=== PATIENT | female | born 1965 | race Caucasian/White ===

== ENCOUNTER 2021-04-23 00:04 | Emergency (ER) | payer SELFPAY ==
[2021-04-23] MEDS ORDERED: Sodium Chloride 0.9% 10 ML Syringe FLUSH PRN (00:05)
--- NOTE | 2021-04-23 00:08 | EDM.PDOC ---
ED [facility] GENERAL MEDICAL PROBLEM - General Chief Complaint: Abdominal Pain Stated Complaint: umbilical pain Time Seen by Provider: 04/23/21 00:04 Source of Information: Reports: Patient History Limitations: Reports: No Limitations - History of Present Illness INITIAL COMMENTS - FREE TEXT/NARRATIVE: Patient comes into the emergency department with complaints of umbilical discomfort. Patient states that the pain and discomfort is been going on now constantly for the last 4 days. Patient is not able to describe the sensation other than an aching sensation. Patient denies any nausea, vomiting, chest pain, shortness of breath, lightheadedness, radiation, genitourinary concerns, or peripheral edema. Patient states that she has next separately high pain tolerance and she want to have this discomfort checked out tonight. She denies the pain or the symptoms getting any worse over the course the last 4 days. Onset: Gradual Duration: Constant Location: Reports: Abdomen. Denies: Radiates to Quality: Reports: Ache, Throbbing Severity: Moderate Improves with: Reports: None Worsens with: Reports: None Associated Symptoms: Reports: No Other Symptoms - Related Data Allergies Allergy/AdvReac Type Severity Reaction Status Date / Time Sulfa (Sulfonamide Allergy Other Verified 04/23/21 00:25 Antibiotics) ED ROS GENERAL - Review of Systems Review Of Systems: Comprehensive ROS is negative, except as noted in HPI. Constitutional: Reports: No Symptoms HEENT: Reports: No Symptoms Respiratory: Reports: No Symptoms Cardiovascular: Reports: No Symptoms Endocrine: Reports: No Symptoms GI/Abdominal: Reports: Abdominal Pain : Reports: No Symptoms Musculoskeletal: Reports: No Symptoms Skin: Reports: No Symptoms Neurological: Reports: No Symptoms Psychiatric: Reports: No Symptoms Hematologic/Lymphatic: Reports: No Symptoms Immunologic: Reports: No Symptoms ED EXAM, GENERAL - Physical Exam Exam: See Below Exam Limited By: No Limitations General Appearance: Alert, WD/WN, No Apparent Distress Throat/Mouth: Normal Inspection, Normal Lips, Normal Teeth, Normal Voice, No Airway Compromise Head: Atraumatic, Normocephalic Neck: Normal Inspection, Supple, Non-Tender, Full Range of Motion Respiratory/Chest: No Respiratory Distress, Lungs Clear, Normal Breath Sounds, No Accessory Muscle Use, Chest Non-Tender Cardiovascular: Normal Peripheral Pulses, Regular Rate, Rhythm, No Edema, No JVD, No Murmur, No Rub GI/Abdominal: Normal Bowel Sounds, Soft, No Organomegaly, No Distention, No Abnormal Bruit, No Mass, Pelvis Stable, Tender (umbilicus region) Back Exam: Normal Inspection, Full Range of Motion Extremities: Normal Inspection, Normal Range of Motion, Non-Tender, No Pedal Edema, Normal Capillary Refill Neurological: Alert, Oriented, CN II-XII Intact, Normal Gait Psychiatric: Normal Affect, Normal Mood Skin Exam: Warm, Dry, Intact, Normal Color #1 Interpretation EKG Date: 04/23/21 Rhythm: NSR [place]: Normal P-Wave: Present QRS: Normal ST-T: Normal Comparison: NA - No Prior EKG Course - Vital Signs Last Recorded V/S: Last Vital Signs Temp 36.6 C 04/23/21 01:03 Pulse 126 H 04/23/21 01:03 Resp 18 04/23/21 01:03 BP 175/101 H 04/23/21 01:03 Pulse Ox 97 04/23/21 01:03 - Orders/Labs/Meds Orders: Active Orders 24 hr Category Date Time Status EKG Documentation Completion [RC] STAT Care 04/23/21 00:08 Ordered Abdomen Pelvis w Cont [CT] Stat Exams 04/23/21 00:05 Ordered COMPREHENSIVE METABOLIC PN,CMP [CHEM] Stat Lab 04/23/21 00:05 Ordered PRO B-TYPE NATRIUR PEPT,BNPPRO [CHEM] Stat Lab 04/23/21 00:05 Ordered TROPONIN I HIGH SENSITIVITY [CHEM] Stat Lab 04/23/21 00:05 Ordered Sodium Chloride 0.9% [Saline Flush] Med 04/23/21 00:05 Ordered 10 ml FLUSH ASDIRECTED PRN Peripheral IV Insertion Adult [OM.PC] Stat Oth 04/23/21 00:05 Ordered Medication Orders Sodium Chloride (Sodium Chloride 0.9% 10 Ml Syringe) 10 ml FLUSH ASDIRECTED PRN PRN Reason: Keep Vein Open Labs: Laboratory Tests 04/23/21 04/23/21 04/23/21 Range/Units 00: 00:21 00:45 WBC 5.7 (4.0-10.0) x10^3/uL RBC 4.76 (4.00-5.50) x10^6/uL Hgb 13.3 (12.0-16.0) g/dL Hct 39.3 (33.0-47.0) % MCV 82.6 (78.0-93.0) fL MCH 27.9 (26.0-32.0) pg MCHC 33.8 (32.0-36.0) g/dL RDW Coeff of Bob 13.7 (10.0-15.0) % Plt Count 246 (130-400) x10^3/uL Immature Gran % (Auto) 0.00 (0.00-0.43) % Neut % (Auto) 58.0 (50.0-80.0) % Lymph % (Auto) 31.4 (25.0-50.0) % [place] % (Auto) 8.5 (2.0-11.0) % Eos % (Auto) 1.9 (0.0-4.0) % Baso % (Auto) 0.2 (0.2-1.2) % Neut # (Auto) 3.3 (1.8-7.7) x10^3/uL Lymph # (Auto) 1.8 (1.0-4.8) x10^3/uL [place]yman # (Auto) 0.5 (0.0-0.8) x10^3/uL Eos # (Auto) 0.1 (0.0-0.5) x10^3/uL Baso # (Auto) 0.0 (0.0-0.2) x10^3/uL Immature Gran # (Auto) 0.00 (0.00-0.07) x10^3/uL Sodium 142 (136-145) mmol/L Potassium 3.5 (3.5-5.1) mmol/L Chloride 109 H (98-107) mmol/L Carbon Dioxide 23 (21-32) mmol/L Anion Gap 13.5 (5-15) mmol/L BUN 15 (7-18) mg/dL Creatinine 0.9 (0.55-1.02) mg/dL Est Cr Clr Drug Dosing TNP Estimated GFR (MDRD) > 60 Glucose 127 H (70-99) mg/dL Calcium 7.7 L (8.5-10.1) mg/dL Corrected Calcium 8.3 L (8.5-10.1) mg/dL Total Bilirubin 0.3 (0.2-1.0) mg/dL AST 14 L (15-37) U/L ALT 26 (14-59) U/L Alkaline Phosphatase 79 (46-116) U/L Troponin I High Sens 7 (<=51) ng/L Total Protein 6.3 L (6.4-8.2) g/dL Albumin 3.2 L (3.4-5.0) g/dL Globulin 3.1 Albumin/Globulin Ratio 1.03 Urine Color Yellow (YELLOW) Urine Appearance Clear (CLEAR) Urine pH 6.0 (5.0-8.0) Ur Specific [place] 1.010 Urine Protein Negative (NEGATIVE) mg/dL Urine Glucose (UA) Negative (NEGATIVE) mg/dL Urine Ketones Negative (NEGATIVE) mg/dL Urine Occult Blood Negative (NEGATIVE) Urine Nitrite Negative (NEGATIVE) Urine Bilirubin Negative (NEGATIVE) Urine Urobilinogen 0.2 (0.2) EU/dL Ur Leukocyte Esterase Negative (NEGATIVE) Meds: Medications Generic Name Dose Route Start Last Admin Trade Name Freq PRN Reason Stop Dose Admin Sodium Chloride 10 ml 04/23/21 00:05 Sodium Chloride 0.9% 10 Ml Syringe FLUSH ASDIRECTED PRN Keep Vein Open Discontinued Medications Generic Name Dose Route Start Last Admin Trade Name Freq PRN Reason Stop Dose Admin Iopamidol 100 ml 04/23/21 00:47 04/23/21 00:47 Iopamidol 612 Mg/Ml 100 Ml Bottle IVPUSH 04/23/21 00:48 100 ml ONETIME ONE Administration Ketorolac Tromethamine 30 mg 04/23/21 00:09 04/23/21 00:15 Ketorolac 30 Mg/Ml Sdv IVPUSH 04/23/21 00:10 30 mg ONETIME ONE Administration Departure - Departure Time of Disposition: 01:35 Disposition: Home, Self-Care 01 Condition: Good Clinical Impression: Gastroenteritis - Discharge Information *PRESCRIPTION DRUG MONITORING PROGRAM REVIEWED*: Not Applicable *COPY OF PRESCRIPTION DRUG MONITORING REPORT IN PATIENT RAVI: Not Applicable Instructions: Viral Gastroenteritis, Adult, [id number] Forms: ED Department Discharge Additional Instructions: 1. rest 2. increase your water intake 3. Continue all at home medications 4. Activity and diet as tolerated 5. Can take over the counter Tylenol for any pain or discomfort 6. Follow up with PCP if symptoms continue, return, or progress 7. Call with any questions or concerns Sepsis Event Note (ED) - Focused Exam Vital Signs: Vital Signs Temp Pulse Resp BP Pulse Ox 04/23/21 01:03 36.6 C 126 H 18 175/101 H 97 - My Orders Last 24 Hours: My Active Orders 04/23/21 00:05 Abdomen Pelvis w Cont [CT] Stat COMPREHENSIVE METABOLIC PN,CMP [CHEM] Stat PRO B-TYPE NATRIUR PEPT,BNPPRO [CHEM] Stat TROPONIN I HIGH SENSITIVITY [CHEM] Stat Sodium Chloride 0.9% [Saline Flush] 10 ml FLUSH ASDIRECTED PRN Peripheral IV Insertion Adult [OM.PC] Stat 04/23/21 00:08 EKG Documentation Completion [RC] STAT - Assessment/Plan Last 24 Hours: My Active Orders 04/23/21 00:05 Abdomen Pelvis w Cont [CT] Stat COMPREHENSIVE METABOLIC PN,CMP [CHEM] Stat PRO B-TYPE NATRIUR PEPT,BNPPRO [CHEM] Stat TROPONIN I HIGH SENSITIVITY [CHEM] Stat Sodium Chloride 0.9% [Saline Flush] 10 ml FLUSH ASDIRECTED PRN Peripheral IV Insertion Adult [OM.PC] Stat 04/23/21 00:08 EKG Documentation Completion [RC] STAT Assessment:: 1. abdominal pain 2. Enteritis Plan: 1. Labs completed in the ER. Results reviewed with the patient 2. CT scan completed in the ER. Results reviewed with the patient 3. IV initiated in the emergency department 4. IV fluids provided 5. Pain medication given for severe pain and discomfort-Toradol 6. UA completed and results reviewed 7. EKG completed. results reviewed with the patient 8. Patient and nursing staff was updated regarding the plan of care 9. Patient and family are agreeable to the above plan of care 10. All questions and concerns were addressed with the patient and family prior to discharge
[2021-04-23] MEDS ORDERED: Ketorolac 30 MG/ML SDV IVPUSH ONE (00:09)
[2021-04-23] MEDS ORDERED: Iopamidol 612 MG/ML 100 ML Bottle IVPUSH ONE (00:47)
[2021-04-23 01:08] LABS: CHLORIDE,CL 109 mmol/L (98-107); SODIUM,NA 142 mmol/L (136-145)
[2021-04-23 01:12] LABS: ANION GAP 13.5 mmol/L (5-15)
--- NOTE | 2021-04-23 08:34 | CT ---
[id number] CT/CT Abdomen Pelvis W IV EXAM: ABDOMEN AND PELVIS CT WITH CONTRAST INDICATION: ABD PAIN. COMPARISON: None. DISCUSSION: A mild thick-walled appearance of scattered small bowel loops could relate to incomplete distention or mild enteritis. No bowel dilation, pneumatosis, free air free fluid. The liver is at upper limits of normal for size and demonstrates at least mild steatosis. Mild bladder distention with ectasia of both urinary collecting systems. Small parapelvic left renal cysts. Mild atrophy or scarring upper pole right kidney. The gallbladder, pancreas, spleen, adrenal glands, appendix, and small bowel are normal in appearance. The uterus and ovaries are unremarkable. The osseous structures are unremarkable. IMPRESSION: 1. Mild apparent small bowel wall thickening, incomplete distention versus minor enteritis. Guy Cosby MD 04/23/21 0833 Thank you for allowing us to participate in the care of your patient.
== END 2021-04-23 01:43 | disposition home or self-care (01) ==
LOC: VM.ED 00:04
DX: K52.9 Noninfective gastroenteritis and colitis, unspecified (principal); Z88.2 Allergy status to sulfonamides
CPT/HCPCS: 74177; 80053; 81003; 83880; 84484; 85025; 93005; 93010; 96374; 99284; 99284-25; J1885; Q9967

== ENCOUNTER 2021-11-25 08:48 | Emergency (ER) | payer SELFPAY ==
[2021-11-25] MEDS ORDERED: Ketorolac 30 MG/ML SDV IM ONE (09:09)
== END 2021-11-25 10:22 | disposition other institution (70) ==
LOC: VM.ED 08:48
DX: M79.671 Pain in right foot (principal); Z88.2 Allergy status to sulfonamides
CPT/HCPCS: 73630-RT; 96372; 99283; 99283-25; J1885

== ENCOUNTER 2022-09-28 04:05 | Emergency (ER) | payer OTHER | END 2022-09-28 05:05 | disposition home or self-care (01) | LOC: VM.ED 04:05 | DX: M53.3 Sacrococcygeal disorders, not elsewhere classified (principal); R29.3 Abnormal posture; Z88.2 Allergy status to sulfonamides; Z72.0 Tobacco use | CPT/HCPCS: 99283; 99284 ==

== ENCOUNTER 2023-01-14 04:07 | Emergency (ER) | payer OTHER | END 2023-01-14 04:30 | disposition home or self-care (01) | LOC: VM.ED 04:07 | DX: S10.96XA Insect bite of unspecified part of neck, initial encounter (principal); Z72.0 Tobacco use; Z88.2 Allergy status to sulfonamides; W57.XXXA Bitten or stung by nonvenomous insect and other nonvenomous arthropods, initial encounter | CPT/HCPCS: 99281; 99283 ==

== ENCOUNTER 2024-08-12 23:23 | Emergency (ER) | payer OTHER ==
[2024-08-12] MEDS: predniSONE 20 MG Tab PO ONE (23:47)
[2024-08-12] MEDS: diphenhydrAMINE 25 MG Cap PO ONE (23:47)
== END 2024-08-13 00:03 | disposition home or self-care (01) ==
LOC: VM.ED 23:23
DX: S50.861A Insect bite (nonvenomous) of right forearm, initial encounter (principal); S50.862A Insect bite (nonvenomous) of left forearm, initial encounter; Z88.2 Allergy status to sulfonamides; F17.210 Nicotine dependence, cigarettes, uncomplicated; W57.XXXA Bitten or stung by nonvenomous insect and other nonvenomous arthropods, initial encounter
CPT/HCPCS: 99282; A9270-GY; J7512

== ENCOUNTER 2024-08-17 00:15 | Observation (INO) | payer OTHER ==
[2024-08-17] MEDS ORDERED: Sodium Chloride 0.9% 10 ML Syringe FLUSH PRN (00:42)
[2024-08-17 01:00] LABS: BASOPHILS PERCENT AUTO 0.1 % (0.2-1.2); EOSINOPHILS ABSOLUTE AUTO 0.2 x10^3/uL (0.0-0.5); EOSINOPHILS PERCENT AUTO 1.3 % (0.0-4.0); HEMATOCRIT 41.7 % (33.0-47.0); HEMOGLOBIN 14.2 g/dL (12.0-16.0); IMMATURE GRAN ABSOLUTE AUTO 0.04 x10^3/uL (0.00-0.07); LYMPHOCYTES ABSOLUTE AUTO 2.1 x10^3/uL (1.0-4.8); LYMPHOCYTES PERCENT AUTO 14.9 % (25.0-50.0); MEAN CORPUSCULAR HEMOGLOBIN 28.1 pg (26.0-32.0); MEAN CORPUSCULAR HGB CONC 34.1 g/dL (32.0-36.0); MEAN CORPUSCULAR VOLUME 82.4 fL (78.0-93.0); MONOCYTES ABSOLUTE AUTO 0.8 x10^3/uL (0.0-0.8); MONOCYTES PERCENT AUTO 5.7 % (2.0-11.0); NEUTROPHILS PERCENT AUTO 77.7 % (50.0-80.0); PLATELET COUNT,PLT 298 x10^3/uL (130-400); RED BLOOD CELL COUNT 5.06 x10^6/uL (4.00-5.50); WHITE BLOOD CELL COUNT,WBC 14.2 x10^3/uL (4.0-10.0)
[2024-08-17] MEDS: Ketorolac 30 MG/ML SDV IVPUSH ONE (01:04)
[2024-08-17 01:10] LABS: APPEARANCE,URINE CLEAR (CLEAR); BILIRUBIN,URINE NEGATIVE (NEGATIVE); COLOR,URINE YELLOW (YELLOW); GLUCOSE,URINE NEGATIVE (NEGATIVE); KETONES,URINE NEGATIVE (NEGATIVE); LEUKOCYTE ESTERASE,URINE NEGATIVE (NEGATIVE); NITRITE,URINE NEGATIVE (NEGATIVE); OCCULT BLOOD,URINE TRACE-INTACT (NEGATIVE); PROTEIN,URINE NEGATIVE (NEGATIVE); UROBILINOGEN,URINE 0.2 EU/dL (0.2)
[2024-08-17 01:17] LABS: BACTERIA,URINE RARE /HPF (NOT SEEN); RBC,URINE 0-5 /HPF (NOT SEEN); SQUAMOUS EPITHELIAL CELLS,UR FEW /HPF (NOT SEEN); WBC,URINE 0-5 /HPF (NOT SEEN)
[2024-08-17 01:19] LABS: ALBUMIN 3.4 g/dL (3.4-5.0); ANION GAP 13.5 mmol/L (5-15); BILIRUBIN TOTAL 0.3 mg/dL (0.2-1.0); CREATININE 1.1 mg/dL (0.55-1.02); EST CRCL DRUG DOSING (CG) 45.17 mL/min; POTASSIUM,K 4.5 mmol/L (3.5-5.1); PROTEIN TOTAL,TP 6.8 g/dL (6.4-8.2)
[2024-08-17] MEDS: Iopamidol 612 MG/ML 100 ML Bottle IVPUSH ONE (02:03)
[2024-08-17] MEDS ORDERED: Ondansetron 4 MG/2 ML SDV IVPUSH PRN (03:06)
[2024-08-17] MEDS: Lactated Ringers 1,000 ML IV SCH (03:55)
== END 2024-08-17 08:40 | disposition short-term general hospital (02) ==
LOC: VM.ED 00:15 → VM.MS 02:50
PROVIDERS: ADMIT Nurse Practitioner Family; ATTEND Nurse Practitioner Family
DX: K56.609 Unspecified intestinal obstruction, unspecified as to partial versus complete obstruction (principal); R10.84 Generalized abdominal pain; Z88.2 Allergy status to sulfonamides
CPT/HCPCS: 36415; 74177; 80053; 81001; 83605; 83690; 85025; 96374; 99236; 99285-25; G0378; J1885; J7120; Q9967

== ENCOUNTER 2025-01-21 09:42 | Emergency (ER) | payer OTHER ==
[2025-01-21] MEDS: Ketorolac 15 MG/ML SDV IM ONE (11:20)
[2025-01-21] MEDS: Orphenadrine 60 MG/2 ML Inj IM ONE (11:21)
== END 2025-01-21 11:20 | disposition home or self-care (01) ==
LOC: VM.ED 09:42
DX: S00.12XA Contusion of left eyelid and periocular area, initial encounter (principal); S00.11XA Contusion of right eyelid and periocular area, initial encounter; Z88.2 Allergy status to sulfonamides; V89.2XXA Person injured in unspecified motor-vehicle accident, traffic, initial encounter
CPT/HCPCS: 96372; 99283; J1885; J2360